=== PATIENT | female | born 1960 | race Caucasian/White ===

== ENCOUNTER 2021-11-28 19:46 | Emergency (ER) | payer OTHER ==
[2021-11-29 00:42] LABS: HEMOGLOBIN 15.3 gm/dl (12.3-15.3); RED BLOOD COUNT 4.83 M/UL (4.00-5.10); WHITE BLOOD COUNT 4.9 K/UL (4.5-11.0)
[2021-11-29 01:22] LABS: BUN/CREATININE RATIO 12 (0-10)
== END 2021-11-29 02:02 | disposition home or self-care (01) ==
LOC: ER1 19:46
PROVIDERS: Physician Assistant
DX: U07.1 COVID-19 (principal); E86.0 Dehydration; E87.6 Hypokalemia; E78.5 Hyperlipidemia, unspecified; I10 Essential (primary) hypertension; J44.9 Chronic obstructive pulmonary disease, unspecified; K21.9 Gastro-esophageal reflux disease without esophagitis; F17.210 Nicotine dependence, cigarettes, uncomplicated
CPT/HCPCS: 71045; 80048; 81001; 82550; 82553; 84484; 85025; 93005; 99284; J7030